=== PATIENT | female | born 1965 | race Caucasian/White ===

== ENCOUNTER 2018-10-16 13:58 | Emergency (ER) | payer OTHER, SELFPAY ==
[2018-10-16 13:59] VITALS: BP 119/74; PULSE 85; RESP 16; TEMP 36.2; O2SAT 99; BMI 33.8
--- NOTE | 2018-10-16 14:33 | CT_ITS ---
STUDY: CT ABDOMEN AND PELVIS WITH CONTRAST REASON FOR EXAM: Female, 53 years old. Pain RADIATION DOSAGE (If Supplied By Facility): DLP = ( 1907.17 ) mGycm TECHNIQUE: Transaxial images were obtained from the dome of the diaphragm to the symphysis pubis with oral contrast. 100CC ml of Isovue 300 contrast was administered. Sagittal and coronal images were reconstructed. Individualized dose optimization techniques were used for this CT. COMPARISON: None. FINDINGS: The visualized lung bases are clear. The visualized portions of the heart and pericardium are within normal limits. There are no calcified gallstones present. The liver is within normal limits. There are no suspicious hepatic lesions. The spleen is normal in size. The pancreas is within normal limits. The adrenal glands are within normal limits. There are no obstructing renal stones. There is no hydronephrosis. There are no focal renal lesions. There is a right adnexal 7.1 x 5.5 x 5.1 cm cyst. Normal visualized stomach. There is no bowel obstruction or inflammation. The appendix is not normal. Visualized, but there are no findings to suggest acute appendicitis. The aorta is normal in caliber. There is no abdominal or pelvic free air, free fluid, fluid collection or lymphadenopathy. There are no destructive osseous lesions. CT/Abdomen/Pelvis WITH Contrast IMPRESSION: Right adnexal 7.1 x 5.5 x 5.1 cm cyst. Consider enlarged ovarian or paraovarian cyst. Pelvic ultrasound and gynecological consultation is recommended. Normal appendix. Electronically Signed: Saravanan Chapman, at 16:45 EDT Tel , Service support ,
[2018-10-16 14:58] LABS: Absolute Lymphocyte Count 1.63 X10^3/uL (0.83-4.51); Basophil# 0.02 X10^3/uL; Basophil% 0.3 % (0-1); Eosinophil# 0.17 X10^3/uL; Eosinophils% 2.8 % (0-5); Hemoglobin 14.3 g/dL (12.0-15.0); Lymphocyte # 1.63 X10^3/ul (4.0); Lymphocyte % 26.5 % (19-41); Mean Corp Hgb Conc 33.3 g/dL (32-36); Mean Corpuscular Hgb 29.4 pg (27.0-32.0); Mean Corpuscular Volume 88.3 fL (81-99); Mean Platelet Vol. 9.7 fl (6.2-12.0); Monocyte# 0.36 X10^3/uL; Monocyte% 5.9 % (0-10); NRBC Flagged by Analyzer 0 % (0-5); Neutrophil # 3.96 X10^3/uL (2.7-7.7); Neutrophil % 64.3 % (47-70); Platelet Count 271 K/mm3 (150-450); RBC Distribution Width CV 12.5 % (11.6-14.6); Red Blood Count 4.87 M/mm3 (4.2-5.4); White Blood Count 6.2 K/mm3 (4.4-11.0)
[2018-10-16 15:02] LABS: Bacteria 0 SEEN /hpf (None Seen); Mucous, Urine 0 SEEN /hpf (<or=2+); White Blood Cells 0 SEEN /hpf (0-5)
[2018-10-16 15:13] LABS: ALB/GLOB Ratio 0.9 RATIO (0.9-2.4); AST(SGOT) 23 U/L (15-37); Alanine Aminotransfer ALT/SGPT 35 U/L (13-56); Albumin, Serum 4.2 g/dL (3.2-5.0); Alkaline Phosphatase 86 U/L (45-117); Anion Gap 4 (5-15); BUN 16 mg/dL (7-18); BUN/Creat Ratio 18.7 RATIO (10-20); Calcium,Total 9.2 mg/dL (8.5-10.1); Chloride 105 mmol/L (98-107); Creatinine, Serum 0.85 mg/dL (0.55-1.02); EST Glomerular Filtration Rate 74 mL/min (>60); Est Glom Filt Rate - Afr Amer 89 mL/min (>60); Estimated Creatinine Clearance 60.54 ml/min; Globulin 4.5 g/dL (2.2-4.2); Glucose 88 mg/dL (74-106); Potassium 3.9 mmol/L (3.5-5.1); Protein, Total 8.7 g/dL (6.4-8.2); Sodium Level 138 mmol/L (136-145)
[2018-10-16 15:14] LABS: Color, Urine Yellow (Yellow); Glucose, Dipstick Normal (Normal); Ketone-Dipstick Negative (Negative); Leukocyte Esterase-Dipstick Negative /ul (Negative); Nitrite-Dipstick Negative (Negative); Occult Blood-Urine 10 /ul (Negative); Protein-Dipstick Negative (Negative); Urine Bilirubin Dipstick Negative (Negative); Urine Clarity Clear (Clear); Urine Urobilinogen Normal (Normal)
[2018-10-16 15:21] LABS: Red Blood Cells-Urine 0-5 SEEN /hpf (0-5); Squamous Epithelial Cells - UA 0-5 SEEN /hpf (5-10)
[2018-10-16 16:12] VITALS: BP 129/101; PULSE 83; RESP 12; O2SAT 99
[2018-10-16 16:30] VITALS: BP 129/101; PULSE 83; RESP 12; O2SAT 99
--- NOTE | 2018-10-16 16:37 | ED.DCSUM_ITS ---
- ER Visit Summary Date of Service: 10/16/18 Chief Complaint: Right lower quadrant abdominal pain History of Present Illness: The patient is a 53 F who presents with right lower quadrant abdominal pain that began yesterday. Patient states the pain is been constant. Patient describes the pain as aching. Patient states the pain is worse with sitting. Patient denies any nausea or vomiting. Patient denies any diarrhea. Patient denies any melena or hematochezia. Patient denies any urinary complaints. Patient states the pain began in the right lower quadrant and has stayed in the same spot. Patient denies any radiation of the pain. Patient states she has a history of a uterine fibroid. Patient saw her retail marketing executive who referred her to the emergency department for further evaluation. Physical Examination: Vital signs are stable. Patient is afebrile. Patient is in no acute distress. Oral mucosa is pink and moist. Neck is supple. Trachea is midline. There is no JVD noted. Heart was regular rate and rhythm. Lungs are clear and equal bilaterally. Abdomen is soft. Bowel sounds are normal. There is some mild tenderness over the right lower quadrant. There is no rebound or guarding noted. Cranial nerves II through XII are intact. There are no focal motor or sensory deficits noted. Test Results: CBC, comprehensive metabolic profile, and urinalysis were obtained and were all normal. CT scan of the abdomen pelvis was obtained. There is a right adnexal cyst. The appendix is normal. Emergency Department Course and Treatment: Patient was advised of her results. Patient was instructed to follow-up with her retail marketing executive in 5 to 7 days. Patient was instructed to take Tylenol or ibuprofen as needed for pain. Patient understood and was agreeable with the plan. All questions were answered. Disposition: Discharge home Impression: Right ovarian cyst This note was generated with Aucteliaation software. It may contain incorrect words, spelling, and punctuation that were not noted in review of the chart prior to signing ED Disposition - Plan for ED Patient: Disposition: Home or Assisted Living Diagnosis: Right ovarian cyst Instructions: Ovarian Cyst Referrals: Care Physician,No Primary [Primary Care Provider] - Rosita Jamison MD [STAFF PHYSICIAN] - 5-7 Days
== END 2018-10-16 17:25 | disposition home or self-care (01) ==
PROVIDERS: Emergency Provider Emergency Medicine
DX: N83.201 Unspecified ovarian cyst, right side (principal)
CPT/HCPCS: 74177; 80053; 81001; 85025; 99283; Q9967; A4216

== ENCOUNTER → 2019-02-16 10:07 | Outpatient (CLI) | payer OTHER, SELFPAY ==
--- NOTE | 2019-02-16 10:19 | EKG12_ITS ---
Test Reason : PRE OP Blood Pressure : / mmHG Vent. Rate : 083 BPM Atrial Rate : 083 BPM P-R Int : 154 ms QRS Dur : 084 ms QT Int : 378 ms P-R-T Axes : 021 049 017 degrees QTc Int : 444 ms Normal sinus rhythm Normal ECG Confirmed by JULITA TEAGUE, MELCHOR ([id number]), order editor MARIO ALBERTO HUBER ([id number]) on 02/16/2019 1:50:44 PM Referred By: Flip Chirinos Confirmed By:MELCHOR CANCINO MD
[2019-02-16 11:18] LABS: Hematocrit 39.3 % (37-47); Hemoglobin 12.6 g/dL (12.0-15.0); Mean Corp Hgb Conc 32.1 g/dL (32-36); Mean Corpuscular Hgb 27.9 pg (27.0-32.0); Mean Corpuscular Volume 87.1 fL (81-99); Mean Platelet Vol. 9.8 fl (6.2-12.0); Platelet Count 291 K/mm3 (150-450); RBC Distribution Width CV 12.6 % (11.6-14.6); RBC Distribution Width SD 39.8 fl (35.1-43.9); Red Blood Count 4.51 M/mm3 (4.2-5.4); White Blood Count 5.7 K/mm3 (4.4-11.0)
[2019-02-16 11:50] LABS: Anion Gap 5 (5-15); BUN 19 mg/dL (7-18); BUN/Creat Ratio 26.7 RATIO (10-20); Calcium,Total 8.9 mg/dL (8.5-10.1); Chloride 106 mmol/L (98-107); Creatinine, Serum 0.71 mg/dL (0.55-1.02); EST Glomerular Filtration Rate 91 mL/min (>60); Est Glom Filt Rate - Afr Amer 110 mL/min (>60); Glucose 77 mg/dL (74-106); Potassium 3.8 mmol/L (3.5-5.1); Sodium Level 140 mmol/L (136-145)
== END ==
PROVIDERS: Family Provider Internal Medicine; PCP Internal Medicine; Referring Provider Physician Assistant; Visit Provider Physician Assistant
DX: Z01.818 Encounter for other preprocedural examination (principal); Z01.810 Encounter for preprocedural cardiovascular examination
CPT/HCPCS: 36415; 80048; 85027; 93005

== ENCOUNTER 2019-04-06 03:53 | Observation (INO) | payer OTHER, SELFPAY ==
[2019-04-06] VITALS (18 sets, daily range): BP systolic 103–151; BP diastolic 60–94; PULSE 58–114; RESP 16–18; TEMP 36.1–36.9; O2SAT 94–98; BMI 37.3; BMI 37.5
--- NOTE | 2019-04-06 04:21 | CT_ITS ---
We are attempting to reach an attending provider to discuss findings. An addendum with communication details will be sent when the communication is complete. STUDY: CT ABDOMEN AND PELVIS WITH CONTRAST REASON FOR EXAM: Female, 53 years old. RIGHT LOWER PELVIC PAIN WITH SHARP, STABBING, CRAMPING, INCREASED LAST NIGHT WITH NAUSEA, HX FIBROID ON LAST CT RADIATION DOSAGE (If Supplied By Facility): CTDIvol = ( 16.67 ) mGy, DLP = ( 1263.36 ) mGycm TECHNIQUE: Transaxial images were obtained from the dome of the diaphragm to the symphysis pubis without oral contrast. Oral and amp; IV Gastrografin and amp; 100mL Isovue-300 was administered. Sagittal and coronal images were reconstructed. Individualized dose optimization techniques were used for this CT. COMPARISON: None. FINDINGS: The visualized lung bases are unremarkable. The visualized portions of the heart are within normal limits. Normal liver. Normal gallbladder and extrahepatic biliary system. Normal spleen. Normal pancreas. Normal bilateral adrenal glands. Normal right kidney. Normal left kidney. Normal visualized stomach. Normal small intestine. Normal colon. There is a tubular, thick-walled appendix (>7mm), consistent with acute appendicitis. Normal abdominal aorta. Normal inferior vena cava. Normal retroperitoneum. Normal urinary bladder. There is a cystic lesion in the right ovary measures 6 cm. Normal abdominal wall. Normal osseous structures. CT/Abdomen/Pelvis WITH Contrast IMPRESSION: Acute appendicitis. There is a cystic lesion in the right ovary measures 6 cm. Electronically Signed: Aisha German, at 6:19 EST Tel , Service support ,
--- NOTE | 2019-04-06 04:22 | ED.VISSUMM ---
- ER Visit Summary Date of Service: 04/06/19 Chief Complaint: Right lower abdominal pain History of Present Illness: The patient is a 53 F who presents with right lower abdominal and pelvic pain that began last night and has gotten progressively worse. Patient describes the pain is sharp, cramping, and stabbing. Patient states nothing makes it better or worse. Patient states she has a history of a fibroid on her uterus. Patient denies any abnormal vaginal bleeding or discharge. Patient does admit to some dysuria. Patient admits to some nausea and vomiting today. Patient denies any fevers or chills. Patient denies any diarrhea, melena, or hematochezia. Patient denies any hematemesis or coffee-ground emesis. Physical Examination: Vital signs are stable except for a heart rate of 114. Patient is afebrile. Patient is in no acute distress. Oral mucosa is pink and moist. Neck is supple. Trachea is midline. There is no JVD. Heart was regular rate and rhythm. Lungs are clear and equal bilaterally. Abdomen is soft. Bowel sounds are normal. There is some tenderness in the right lower quadrant. There is no rebound or guarding noted. Cranial nerves II through XII are intact. There are no focal motor or sensory deficits noted. Test Results: CBC and comprehensive metabolic profile were obtained and were essentially within normal limits. Urinalysis does not show any evidence of urinary tract infection. CT scan of the abdomen and pelvis was obtained. There is acute appendicitis. There is also a 6 cm right ovarian cyst. Emergency Department Course and Treatment: Patient was given IV fluids, morphine, and Zofran. Case was discussed with Dr. Kunz from surgery. He will admit the patient to her service. She recommended starting the patient on antibiotics. Patient was given a dose of Unasyn. Patient was also given a repeat dose of morphine. Patient understands and is agreeable with the plan. All questions were answered. Disposition: Admit to hospital Impression: Acute appendicitis This note was generated with Yapta dictation software. It may contain incorrect words, spelling, and punctuation that were not noted in review of the chart prior to signing ED Disposition - Plan for ED Patient: Disposition: Acute Care Hospital [facility] Diagnosis: Acute appendicitis Referrals: Tracy Mendez DO [Primary Care Provider] -
[2019-04-06 04:28] LABS: Absolute Lymphocyte Count 1.45 X10^3/uL (0.83-4.51); Absolute Neutrophil Count 7.7 X10^3/uL (2.0-7.7); Basophil# 0.01 X10^3/uL; Basophil% 0.1 % (0-1); Eosinophil# 0.02 X10^3/uL; Eosinophils% 0.2 % (0-5); Hemoglobin 12.9 g/dL (12.0-15.0); Lymphocyte # 1.45 X10^3/ul (4.0); Lymphocyte % 15.1 % (19-41); Mean Corp Hgb Conc 32.3 g/dL (32-36); Mean Corpuscular Hgb 27.7 pg (27.0-32.0); Mean Platelet Vol. 9.5 fl (6.2-12.0); Monocyte# 0.43 X10^3/uL; Monocyte% 4.5 % (0-10); NRBC Flagged by Analyzer 0 % (0-5); Neutrophil # 7.68 X10^3/uL (2.7-7.7); Neutrophil % 79.9 % (47-70); Platelet Count 263 K/mm3 (150-450); RBC Distribution Width CV 13.1 % (11.6-14.6); RBC Distribution Width SD 40.7 fl (35.1-43.9); Red Blood Count 4.65 M/mm3 (4.2-5.4); White Blood Count 9.6 K/mm3 (4.4-11.0)
[2019-04-06] MEDS: 0.9% Normal Saline 1,000 ML 1000 ML IV (04:36)
[2019-04-06] MEDS: Morphine 4 MG/ML Syringe IV ×4 (04:37→16:16)
[2019-04-06] MEDS: Ondansetron 4 MG/2 ML Vial IV ×2 (04:37→07:08)
[2019-04-06 04:41] LABS: ALB/GLOB Ratio 0.8 RATIO (0.9-2.4); AST(SGOT) 26 U/L (15-37); Alanine Aminotransfer ALT/SGPT 45 U/L (13-56); Albumin, Serum 3.7 g/dL (3.2-5.0); Alkaline Phosphatase 75 U/L (45-117); Anion Gap 5 (5-15); BUN 19 mg/dL (7-18); BUN/Creat Ratio 25.1 RATIO (10-20); Calcium,Total 9.4 mg/dL (8.5-10.1); Chloride 102 mmol/L (98-107); Creatinine, Serum 0.76 mg/dL (0.55-1.02); EST Glomerular Filtration Rate 85 mL/min (>60); Est Glom Filt Rate - Afr Amer 103 mL/min (>60); Estimated Creatinine Clearance 67.71 ml/min; Globulin 4.4 g/dL (2.2-4.2); Glucose 122 mg/dL (74-106); Lipase 115 U/L (73-393); Potassium 4.2 mmol/L (3.5-5.1); Protein, Total 8.1 g/dL (6.4-8.2); Sodium Level 136 mmol/L (136-145)
[2019-04-06 05:25] LABS: Bacteria 0 SEEN /hpf (None Seen); Mucous, Urine 0 SEEN /hpf (<or=2+)
[2019-04-06 05:34] LABS: Color, Urine Yellow (Yellow); Glucose, Dipstick Normal (Normal); Ketone-Dipstick Negative (Negative); Leukocyte Esterase-Dipstick 500 /ul (Negative); Nitrite-Dipstick Negative (Negative); Occult Blood-Urine 25 /ul (Negative); Protein-Dipstick Negative (Negative); Specific Gravity, Urine 1.015 (1.002-1.030); Urine Bilirubin Dipstick Negative (Negative); Urine Clarity Sl. Cloudy (Clear); Urine Urobilinogen Normal (Normal)
[2019-04-06 05:59] LABS: Red Blood Cells-Urine 0-5 SEEN /hpf (0-5); Squamous Epithelial Cells - UA 5-10 SEEN /hpf (5-10); White Blood Cells 5-10 SEEN /hpf (0-5)
--- NOTE | 2019-04-06 06:27 | ED.RN ---
dr. stout paged left message at this time
--- NOTE | 2019-04-06 07:35 | HP.PCM_ITS ---
History and Physical Date of Admission: 04/06/19 Chief Complaint: abdominal pain History of Present Illness: 53 yo otherwise healthy WF presents with right lower quadrant abdominal pain. She was concerned that it was her fibroids. She states that pain has been presents since yesterday afternoon. It worsened and accompanied by nausea and multiple episode of emesis. She presented to [facility] ED. CT scan - There is a tubular, thick-walled appendix (>7mm), consistent with acute appendicitis. Past Medical History: denies major medical illnesses Past Surgical History: right knee surgery colonoscopy Medications: denies taking chronic medications, took aspirin last week Allergies: Has no known drug allergies Social history: TOB use denies Review of Systems: General - denies fevers Cardiovascular denies chest pain, denies history of heart attack Pulmonary denies shortness of breath, denies coughing up blood, Gastrointestinal as per HPI Neurological denies seizures Genitourinary denies burning with urination, denies blood in urine Hematological denies spontaneous/prolonged bleeding Skin denies open non healing wounds Musculoskeletal denies arthritis Endocrine denies diabetes, denies thyroid problems Psychological denies hallucinations Physical examination: Vital signs Temp 97.7F BP 137/91 RR16 HR 91 General WD/WN WF in no apparent distress, alert and oriented, not septic appearing HEENT Normocephalic. EOM intact with sclera clear and no icterus noted. Wearing glasses Neck is supple with no jugular venous distention noted. Trachea is midline. Lungs normal breath sounds in all lung benavides. No rales/rhonchi/wheezing noted. No labored breathing noted, such as retractions. No cough heard. Heart normal heart sounds, regular rate Abdomen soft but tender in right lower quadrant with rebound, hypoactive bowel sounds Extremities no calf tenderness noted. No pitting edema noted. Genitourinary/Rectal deferred Skin normal skin integrity. Neurological non focal. Psychological normal affect, patient is calm and appropriate IMPRESSION: appendicitis by CT scan right lower quadrant abdominal pain DISCUSSION/PLAN: admit to [facility] awaiting time to OR for laparoscopic appendectomy I have discussed the above with the patient and her who is present with her I have offered the patient the procedure of laparoscopic appendectomy. I have explained the procedure to the patient. I have counseled the patient as to the risks of the procedure, including but not limited to: infection, bleeding, injury to any blood vessels/nerves, scar tissue, injury to any intrabdominal organs, injury to kidney/ureters, injury to bowel/bladder, intraabdominal abscess/bleeding, hernias at incisional sites, wound infections, possible open procedure, complications of anesthesia, postoperative pneumonia/cardiac problems/blood clots etc. the patient understands. She wishes to proceed. I have answered all questions to the patient?s satisfaction and the patient has no further questions. There are presently two other add-on cases awaiting OR time. I have offered patient to transfer to another hospital if she is concerned about waiting for surgery, she declines this.
[2019-04-06] MEDS: Lactated Ringers 1,000 ML 125 ML IV ×3 (08:41→23:33)
--- NOTE | 2019-04-06 11:35 | APP_PTH ---
PATIENT: ESTRELLA MCCORD LOC: PCU U#:[id number] AGE/SX: 53/F ROOM: [facility] RE04/06/[address]: Dr. Melania Kunz MD : [id number] BED: 1 DIS: 04/07/2019 SPEC #: [id number] RECD: 04/06/19 15:00 STATUS: LEILANI REQ #: [id number] DONNELL: 04/06/19 11:[address]: Melania Kunz DEPT: SURGICAL PATHOLOGY RECD BY: [employer] ENTERED: 04/07/19 10:01 SP TYPE: APPENDIX OTHR DR: Dr. Tracy Mendez DO Tissues: Appendix, NOS Procedures: Surgery Specimen Level III HEADER OPERATION: Laparoscopic appendectomy PRE-OP DIAGNOSIS: Appendicitis TISSUE SUBMITTED: Appendix MICROSCOPIC DIAGNOSIS Appendix, appendectomy: Acute necrotizing appendicitis. Acute serositis. AM:wayne 04/08/19 MICROSCOPIC DESCRIPTION Slides are reviewed. GROSS DESCRIPTION Received is one container labeled with the patient's name and designated appendix. The specimen consists of an appendix measuring 5.5 cm in length and up to 1 cm in diameter. The attached periappendiceal adipose tissue measures up to 1 cm in width. The serosa is congested. No obvious perforation is identified. The lumen does not contain any fecalith. Washing Machine Repairer sections are submitted in one cassette. / SJ:rg 04/07/19 TC:2 CPT: 69676
--- NOTE | 2019-04-06 12:08 | DCINST_ITS ---
Discharge Diet: No Restrictions - drink plenty of water avoid carbonated beverages for a few days Discharge Activity: Return to Normal Activity, May not drive while taking narcotic pain medications. Lifting Restrictions: no lifting/pushing/pulling greater than 10 pounds for 2 weeks Call your doctor if your incision/area has: Continuous Slow Oozing, Foul Smelling Discharge Call your doctor if you observe: Fever of 101 or Higher Additional Dressing/Incision Instructions:: Leave dressings in place. May get wet in the shower - do not scrub in the area. Do not soak - no tub baths/swimming Medications to take at Discharge NK 10/16/18 Allergies/Adverse Reactions: Allergies No Known Allergies Allergy (Verified 04/06/19 03:54) Primary Care Physician: Tracy Mendez DO [Primary Care Provider] - Test Results: Test results from this visit will be discussed in further detail at your follow- up appointment, if applicable. Please Follow Up With: Melania Kunz MD - call When: to be seen in 10-14 days, please call for date and time, thank you
[2019-04-06] MEDS: Bupiv/Epi 0.25% 30 ML Vial (12:53)
--- NOTE | 2019-04-06 13:04 | OP.PCM_ITS ---
Report of Operation Date of Procedure: 04/06/19 Pre-Operative Diagnosis: acute appendicitis Post-Operative Diagnosis: same Surgery/Procedure Performed:: laparoscopic appendectomy Description of Surgical Findings:: acute appendicitis, not perforated, large right ovarian cyst mold burner: luz maria Cage Type of Anesthesia:: General Anesthesiologist: Erica Marshall Specimen's removed: appendix Estimated Blood Loss (mL): < 10 ml Fluids Replaced: 1000 ml RL Description of Procedure: After informed consent was obtained, the patient was brought into the Operating Room. Appropriate time out protocol was followed. She was then placed in the supine position on the operating table. The patient was then placed under general anesthesia. The patient?s abdomen was then prepped with a sterile surgical skin preparation and sterile surgical drapes were placed. The in fraumbilical skin fold was grasped with penetrating clamps and the skin and subcutaneous tissues were infiltrated with 0.25% marcaine with epinephrine. There was noted to be a small umbilical fascial defect with incarcerated preperitoneal fat. This excess fat was excised and a 5 mm trocar was placed into the fascial defect with direct visualization. A CO2 pneumoperitoneum was then created. Once this was achieved, a 5 mm laparoscope was then inserted into the trocar. Careful examination of the intraabdominal contents was then done. There was no evidence of injury to any internal organs from placement of the trocar. Under direct visualization, a 12mm suprapubic trocar and a 5mm left lower quadrant trocar was then placed into the intraabdominal cavity. The skin and subcutaneous tissues at these sites were first infiltrated with 0.25% marcaine with epinephrine. Attention was then directed to the right lower quadrant. The appendix was visualized. It was edematous/erythematous with slight fibrinous exudate consistent with acute appendicitis. It was not perforated. The mesentery of the appendix was taken down by cauterizing the tissue from the free edge to the base of the appendix with the Harmonic scalpel. Once the base of the appendix was freed of surrounding tissues, then the linear gastrointestinal stapling device was brought into the abdominal cavity via the 12mm port and placed across the base of the appendix. The stapling device was fired, thus stapling across the base of the appendix and transecting it simultaneously. Slight oozing at the staple line was controlled with surgicel. The appendix was then placed in an Endobag and this was brought out through the suprapubic trocar. The appendix was then forwarded to Pathology for analysis. The appendiceal stump was carefully examined. There was no evidence of any active bleeding or fecal leakage. The surrounding tissues were also examined and there was no evidence of any active bleeding or fecal/bile leakage. The intraabdominal cavity was examined and there was no evidence of further inflammation or tissue abnormality except for large right ovarian cyst for which pictures were taken. There was no evidence of any peritoneal fluid. The CO2 pneumoperitoneum was released and all trocars were removed intact. The suprapubic fascia was reapproximated with a figure-of-8 vicryl suture. The periumbilical fascia was reapproximated with figure of 8 vicryl suture. All skin incisions were reapproximated with monocryl suture. Cavilon and steristrips were applied to reinforce skin closure and proper sterile dressings were placed. The patient was then extubated and brought to the Recovery Room in stable condition. - Complications none noted - Admit VTE Documentation VTE Present on Admission: Yes VTE Mechan Device Prophylaxis: SCD's
--- NOTE | 2019-04-06 20:27 | NURSING ---
PT STATES SHE FEELS UNABLE TO RETURN HOME TONIGHT D/T PAIN AND DROWSINESS.
[2019-04-07] MEDS: Morphine 4 MG/ML Syringe IV (02:59)
[2019-04-07 03:15] VITALS: BP 120/71; PULSE 86; RESP 18; TEMP 36.7; O2SAT 92
[2019-04-07 08:30] VITALS: BP 120/71; PULSE 87; RESP 18; TEMP 36.6; O2SAT 96
[2019-04-07] MEDS: traMADol 50 MG Tablet PO (08:30)
== END 2019-04-07 11:22 | disposition home or self-care (01) ==
LOC: ED 07:01 → PCU 07:18
PROVIDERS: Admitting Provider Surgery; Emergency Provider Emergency Medicine; PCP Internal Medicine; Visit Provider Surgery
PROC: 0DTJ4ZZ Resection of Appendix, Percutaneous Endoscopic Approach (ICD-10-PCS; CPT 44970; principal; 2019-04-06 11:15)
DX: K35.33 Acute appendicitis with perforation, localized peritonitis, and gangrene, with abscess (principal); N83.201 Unspecified ovarian cyst, right side
CPT/HCPCS: 00840; 44970; 74177; 80053; 81001; 83690; 85025; 88304; 96361; 96365; 96366; 96375; 96376; 97802; 99218; 99284; J7030; J7120; Q9967; A4216; G0378; J0295; J2405

== ENCOUNTER → 2019-04-10 09:22 | Outpatient (CLI) | payer OTHER, SELFPAY ==
[2019-04-06 08:47] VITALS: BMI 37.5
--- NOTE | 2019-04-10 09:28 | RAD_ITS ---
STUDY: X-RAY CHEST REASON FOR EXAM: Female, 53 years old. COUGH, 5 DAYS POST APPENDECTOMY TECHNIQUE: PA and lateral views of the chest. COMPARISON: None. FINDINGS: The lungs are clear and expanded. There is no demonstrated pleural abnormality. Normal size heart. Normal mediastinum and cary. Normal visualized pulmonary arteries. Normal visualized aortic arch and descending thoracic aorta. There are mild degenerative changes of the visualized thoracic spine. Levoscoliosis. Normal visualized ribs, clavicles, and shoulders. There is no demonstrated abnormality of the visualized soft tissue structures of the upper abdomen. RAD/Chest PA and Lateral IMPRESSION: No acute abnormality is seen. Electronically Signed: Rudi Reddy, at 10:14 EST , Service support ,
== END ==
PROVIDERS: PCP Internal Medicine; Referring Provider Internal Medicine; Visit Provider Internal Medicine
DX: R05 Cough (principal)
CPT/HCPCS: 71046

== ENCOUNTER → 2019-10-26 14:09 | Outpatient (CLI) | payer OTHER, SELFPAY ==
[2019-04-06 08:47] VITALS: BMI 37.5
--- NOTE | 2019-10-26 14:11 | CT_ITS ---
STUDY: CT ABDOMEN AND PELVIS WITHOUT CONTRAST REASON FOR EXAM: Female, 54 years old. PT STATED MICRO HEMATURIA, HX APPY RADIATION DOSAGE (If Supplied By Facility): CTDIvol = ( 15.57 ) mGy, DLP = ( 840.28 ) mGycm TECHNIQUE: Transaxial images were obtained from the dome of the diaphragm to the symphysis pubis without oral contrast, and without intravenous contrast. Sagittal and coronal images were reconstructed. Individualized dose optimization techniques were used for this CT. COMPARISON: Comparison is made with prior examination dated 04/06/2019. FINDINGS: The visualized lung bases are unremarkable. The visualized portions of the heart are within normal limits. Normal liver. Normal gallbladder and extrahepatic biliary system. Normal spleen. Normal pancreas. Normal bilateral adrenal glands. Normal right kidney. Normal left kidney. There is a small hiatal hernia. Normal small intestine. Normal colon. The patient is status post appendectomy. There is scattered atherosclerotic calcification of the abdominal aorta, without a demonstrated aneurysm. Normal inferior vena cava. Normal retroperitoneum. Normal urinary bladder. There is a small umbilical hernia containing fat. Minimal dextroscoliosis. CT/Abdomen/Pelvis without Cont IMPRESSION: Status post appendectomy. Electronically Signed: Rudi Reddy, at 14:33 EDT , Service support ,
== END ==
PROVIDERS: PCP Internal Medicine; Referring Provider Internal Medicine; Visit Provider Internal Medicine
DX: R31.29 Other microscopic hematuria (principal)
CPT/HCPCS: 74176

== ENCOUNTER → 2020-07-05 17:56 | Outpatient (CLI) | payer OTHER, SELFPAY ==
[2019-04-06 08:47] VITALS: BMI 37.5
--- NOTE | 2020-07-05 18:04 | US_ITS ---
STUDY: ULTRASOUND OF THE FEMALE PELVIS - COMPLETE REASON FOR EXAM: Female, 54 years old. HX FIBROID LMP: The patient is postmenopausal. TECHNIQUE: Transabdominal and Transvaginal TECHNICAL QUALITY: Adequate. COMPARISON: None. FINDINGS: The uterus is retroverted and is in a midline position. The uterus measures 8.2 cm x 7.1 cm x 4.3 cm. Normal uterine cervix. The endometrium measures 6 mm in thickness, and is hyperechoic. There is no demonstrated endometrial mass. Multiple fibroids are seen. The largest measures 5.5 cm x 5.8 cm x 5 cm. This is in the right side of the body of the uterus. I.U.D. - The patient does not have an I.U.D. The right ovary is visualized. The right ovary measures 2.6 cm x 2.3 cm x 1.7 cm. There is no right ovarian cyst or ovarian mass. There is no visualized right adnexal mass or complex lesion. There is normal arterial and normal venous vascularity. There is no fluid in the cul-de-sac. The pre void volume of the bladder was 140.5 ml. Polycystic ovary disease: No. US/Pelvic (Non ) IMPRESSION: Enlarged fibroid uterus. Electronically Signed: Rudi Reddy MD at 14:57 EDT , Service support ,
--- NOTE | 2020-07-05 18:17 | US_ITS ---
STUDY: ULTRASOUND OF THE FEMALE PELVIS - COMPLETE REASON FOR EXAM: Female, 54 years old. HX FIBROID LMP: The patient is postmenopausal. TECHNIQUE: Transabdominal and Transvaginal TECHNICAL QUALITY: Adequate. COMPARISON: None. FINDINGS: The uterus is retroverted and is in a midline position. The uterus measures 8.2 cm x 7.1 cm x 4.3 cm. Normal uterine cervix. The endometrium measures 6 mm in thickness, and is hyperechoic. There is no demonstrated endometrial mass. Multiple fibroids are seen. The largest measures 5.5 cm x 5.8 cm x 5 cm. This is in the right side of the body of the uterus. I.U.D. - The patient does not have an I.U.D. The right ovary is visualized. The right ovary measures 2.6 cm x 2.3 cm x 1.7 cm. There is no right ovarian cyst or ovarian mass. There is no visualized right adnexal mass or complex lesion. There is normal arterial and normal venous vascularity. There is no fluid in the cul-de-sac. The pre void volume of the bladder was 140.5 ml. Polycystic ovary disease: No. US/Transvaginal Non- IMPRESSION: Enlarged fibroid uterus. Electronically Signed: Rudi Reddy MD at 14:57 EDT , Service support ,
== END ==
PROVIDERS: PCP Internal Medicine; Referring Provider Internal Medicine; Visit Provider Internal Medicine
DX: R10.2 Pelvic and perineal pain (principal)
CPT/HCPCS: 76830; 76856

== ENCOUNTER 2021-03-08 08:17 | Outpatient (CLI) | payer OTHER, SELFPAY ==
--- NOTE | 2021-03-08 08:25 | US_ITS ---
STUDY: ABDOMINAL ULTRASOUND - RIGHT UPPER QUADRANT REASON FOR VISIT: Female, 55 years old ruq pain TECHNIQUE: Ultrasound evaluation of the right upper quadrant was performed with real-time and static britton-scale imaging. TECHNICAL QUALITY: Adequate. COMPARISON: None. FINDINGS: Liver: The liver measures 15.7 cm. There is increased echogenicity consistent with fatty infiltration. The bile ducts are within normal limits. There is hepatic color flow. The direction of portal flow is hepatopetal. There is no demonstrated mass lesion. Gallbladder: Normal distended gallbladder. The gallbladder wall measures 2.2 mm. There is a negative sonographic Drew''s sign. There is no pericholecystic fluid. There are no gallstones. Common Bile Duct (C.B.D.): The common bile duct measures 3.7 mm. Pancreas: Normal size of the head, body and tail of the pancreas. There is normal echogenicity of the pancreas. There is no demonstrated pancreatic mass or cyst. Right Kidney: Normal size of the right kidney. The right kidney measures 9.2 cm x 5.4 cm x 4.6 cm. Normal renal cortex. The right cortex measures 1.4 cm. There is no demonstrated renal mass or cyst. Fullness of the right renal pelvis. US/Gallbladder IMPRESSION: Fatty infiltration of the liver. Fullness of the right renal pelvis. Electronically Signed: Rudi Reddy MD at 13:57 EST , Service support ,
== END 2021-03-08 23:59 | disposition short-term general hospital (02) ==
PROVIDERS: PCP Internal Medicine; Referring Provider Internal Medicine; Visit Provider Internal Medicine
DX: R10.11 Right upper quadrant pain (principal)
CPT/HCPCS: 76705

== ENCOUNTER 2022-01-17 09:02 | Outpatient (CLI) | payer OTHER, SELFPAY ==
--- NOTE | 2022-01-17 09:10 | BD_ITS ---
STUDY: DUAL ENERGY X-RAY ABSORPTIOMETRY / DXA REASON FOR EXAM: Female, 56 years old. Z780 TECHNIQUE: Bone Mineral Density (BMD) measurements of lumbar spine and bilateral hips were obtained. COMPARISON: None. FINDINGS: Lumbar Spine (L1-L4): g/cm2 (0.978) / T-score (-0.5) / Z-score (0.6) Findings are suggestive of normal bone density with a low fracture risk. Left Femur Total: g/cm2 (1.003) / T-score (0.5) / Z-score (1.2) Left Femoral Neck: g/cm2 (0.907) / T-score (0.5) / Z-score (1.6) Right Femur Total: g/cm2 (0.968) / T-score (0.2) / Z-score (1.0) Right Femoral Neck: g/cm2 (0.836) / T-score (-0.1) / Z-score (1.0) BD/Dexa Bone Density Study IMPRESSION: The patient is considered normal as outlined below according to World Cooper Organization (WHO) criteria with a low fracture risk. Reference Information: The T-score is the number of standard deviations above or below the standard which is normal for young adults at their peak bone mineral density. The World Health Organization (WHO) interprets the T-scores as follows: Above -1 Normal bone density Between -1 and -2.5 Osteopenia Equal to / or below -2.5 Osteoporosis As a practical clinical guideline, osteopenia may be graded as follows: Mild -1 through -1.5 Moderate -1.6 through -2.0 Severe -2.1 through -2.4 The Z-score is the number of standard deviations above or below age-matched controls. A Z-score of less than -1.5 would be considered abnormal. References: 1. NIH Osteoporosis and Related Bone Diseases www osteo.org 2. International Society for Clinical Densitometry www iscd.org 3. National Osteoporosis Foundation www nof.org Electronically Signed: Rudi Reddy MD at 14:59 EST ,
== END 2022-01-17 23:59 | disposition home or self-care (01) ==
PROVIDERS: PCP Internal Medicine; Visit Provider Internal Medicine
DX: Z78.0 Asymptomatic menopausal state (principal)
CPT/HCPCS: 77080

== ENCOUNTER 2023-01-03 05:25 | Day surgery (SDC) | payer OTHER, SELFPAY ==
--- NOTE | 2022-12-07 17:49 | PCM.HP.BLA ---
History and Physical Date of Admission: 01/03/23 HPI: The patient is a 57 year old female presenting for pre-operative visit. She is scheduled for LAVH with bilateral salpingectomy, for persistent NY on cervix on 01/03/23. Procedure discussed along with risks, benefits and complications. Other alternatives discussed for management. Consent form signed? Yes. ? ? PAST MEDICAL HISTORY PAST MEDICAL HISTORY Diagnosis Date ? Acute appendicitis 04/06/2019 ? ASCUS with positive high risk HPV cervical 07/27/2019 ? Cervical high risk human papillomavirus (HPV) DNA test positive 2009,2017 ? Dysplasia of cervix, unspecified 1998 ? mild dysplasia ? Pap smear of cervix with ASCUS, cannot exclude HGSIL 2017 ? Papanicolaou smear of cervix with atypical squamous cells of undetermined significance (ASC-US) 2007 ? neg HPV ? Snoring ? ? ? PAST SURGICAL HISTORY PAST SURGICAL HISTORY Procedure Laterality Date ? COLONOSCOPY FLX DX W/COLLJ SPEC WHEN PFRMD ? 10/06/2018 ? Colonoscopy ? COLPOSCOPY CERVIX UPPER/ADJACENT VAGINA ? 1996;1998;2002;2005;2006;2009 ? Colposcopy ? KNEE SURGERY HX Right 02/2019 ? LAPAROSCOPIC APPENDECTOMY ? 04/06/2019 ? PAST SURGICAL HISTORY OF ? 05/31/1998 ? leep-mild dysplasia ? ? ? CURRENT MEDICATIONS Current Outpatient Medications Medication Sig Dispense Refill ? calcium carbonate/vitamin d3(CALCIUM 600 + D 600 MG-125 UNIT TAB) Take one(1) tablet twice daily. ? 0 ? omeprazole (PRILOSEC) 20 mg capsule TAKE 1 CAPSULE BY MOUTH EVERY MORNING 15 MINUTES before eating ? ? ? rosuvastatin (CRESTOR) 5 mg tablet Take 5 mg by mouth once daily. ? ? ? No current facility-administered medications for this visit. ? ? ALLERGIES: Patient has no known allergies. ? PERSONAL HISTORY: SOCIAL HISTORY Social History ? Tobacco Use ? Smoking status: Never ? Smokeless tobacco: Never Vaping Use ? Vaping Use: Never used Substance Use Topics ? Alcohol use: Not Currently ? Drug use: No ? FAMILY HISTORY: FAMILY HISTORY FAMILY HISTORY Problem Relation Age of Onset ? Hypertension Mother ? ? Heart Mother ? ? Heart attack ? Heart Father ? ? CHF ? Stroke Father ? ? Diabetes Maternal Grandfather ? ? Cancer Paternal Grandmother ? ? ovarian ? Diabetes Maternal Aunt ? ? Cancer Paternal Aunt ? ? ovarian ? Breast Cancer Paternal Aunt ? ? same one with ovarian ? ? REVIEW OF SYMPTOMS: GENERAL: denies fevers or chills ENDOCRINOLOGY: has not been on steroids Cardiology : denies palpitations or chest pain Respiratory: denies SOB or cough Hematology: denies history of prolonged bleeding or easy bruising or VTE Allergy: Denies history of personal or family history of allergy to anesthesia ? PHYSICAL EXAMINATION: ? VITALS: Blood pressure 124/82, weight 212 lb (96.2 kg), last menstrual period 05/15/2017. ? GENERAL: The patient is well nourished, well hydrated in no acute distress. , The patient is oriented to time, place, and person. NECK: Supple. No lynphadenopathy, normal thyroid, no thyromegaly. LUNGS: Clear to auscultation bilaterally. no wheezes, rhonchi or rales HEART: Regular rate and rhythm, Normal heart sounds, and No murmurs or gallops GENITALIA: Normal external genitalia, Urethral meatus normal, Bladder nontender, normal vagina and normal vaginal tone, normal uterus, size and consistency, normal adnexa without masses or tenderness, and perineum WNL, cervix flush and stenotic ? ? DATE OF EXAM: Nov ?2022 ?7:37AM ? [facility] ? 1060 ?- ?US FEMALE PELVIS TRANSVAG ?/ PROCEDURE REASON: Pelvic pain in female ?? ? * * * * Physician Interpretation * * * * ?EXAMINATION: ? TRANSVAGINAL AND LIMITED TRANSABDOMINAL FEMALE PELVIC ULTRASOUND CLINICAL HISTORY: ?Pelvic pain. ?Uterine fibroid TECHNIQUE: Sonography of the pelvis was performed by transvaginal and transabdominal (limited) techniques. ?Images were obtained and stored in a permanent archive. MQ: ?[id number] COMPARISON: 08/25/2018 RESULT: Uterus: -Size: 7.2 x 3.2 x 3.8 cm -Orientation: Retroverted -Endometrial echo complex: Evaluation of the endometrium was adequate. ? The endometrium is heterogeneous in appearance. The endometrial echo complex measured 0.8 cm. -Cervix: Nabothian cysts present, otherwise unremarkable. -Adenomyosis assessment: There are no sonographic findings of adenomyosis. -Fibroids: Right uterine fibroid, subserosal of 5.7 cm. ?Stable The right and left ovary are not seen with the transabdominal or endovaginal probe Free Fluid: No abnormal free fluid is present. No pathologic adnexal mass ? ? Unable to do EMB due to cervical stenosis 11/14/22 cervical biopsy NY 2 ? IMPRESSION: NY 2, flush cervix, thickened endometrium, cervical stenosis Patient has h/o lEEP and stenotic cervix. D/w her repeat cone or leep may make surveillance more difficult. D/w her short and longwall foreman risks of hysterectomy including that HPV may persist. ? PLAN: The risks/benefits/alternatives and personal involved for the planned LAVH with bilateral salpingectomy were reviewed with the patient. Her questions were answered to her satisfaction and she desires to proceed. Consent was signed. I reviewed with her postop instructions and expectations. ? ? I have reviewed and updated past medical and surgical history, medications and allergies Assessment & Plan Assessment/Plan (1) NY II (cervical intraepithelial neoplasia II): (2) Stenotic cervical os: (3) Endometrial thickening on ultrasound:
--- NOTE | 2022-12-26 07:11 | EKG12_ITS ---
Test Reason : PRE-OP Blood Pressure : / mmHG Vent. Rate : 079 BPM Atrial Rate : 079 BPM P-R Int : 162 ms QRS Dur : 082 ms QT Int : 396 ms P-R-T Axes : 042 058 039 degrees QTc Int : 454 ms Normal sinus rhythm with sinus arrhythmia Normal ECG Confirmed by GUERDA TEAGUE, FRAN ([id number]), school photograph editor CALVIN MCGOVERN ([id number]) on 01/07/2023 7:54:33 AM Referred By: Rosita Jamison Confirmed By:KATIE CROFT MD
[2022-12-26 07:58] LABS: Hematocrit 42.6 % (37-47); Hemoglobin 13.4 g/dL (12.0-15.0); Mean Corp Hgb Conc 31.5 g/dL (32-36); Mean Corpuscular Hgb 27.2 pg (27.0-32.0); Mean Corpuscular Volume 86.4 fL (81-99); Mean Platelet Vol. 9.5 fl (6.2-12.0); Platelet Count 312 K/mm3 (150-450); RBC Distribution Width CV 12.8 % (11.6-14.6); RBC Distribution Width SD 40.2 fl (35.1-43.9); Red Blood Count 4.93 M/mm3 (4.2-5.4); White Blood Count 5.7 K/mm3 (4.4-11.0)
[2022-12-26 08:18] LABS: Magnesium 2.5 mg/dL (1.6-2.6)
[2023-01-03] VITALS (9 sets, daily range): BP systolic 93–128; BP diastolic 55–84; PULSE 55–84; RESP 14–18; TEMP 35.8–36.6; O2SAT 93–100; BMI 38.2
[2023-01-03] MEDS: Lactated Ringers 1,000 ML 40 ML IV (06:09)
[2023-01-03] MEDS: Scopolamine 1mg/72hr Patch 1 PATCH TD (06:10)
[2023-01-03] MEDS: Magnesium 1 GM over 15 mins IV (06:10)
[2023-01-03] MEDS: Enoxaparin 40 MG/0.4 ML Syringe SC (06:13)
[2023-01-03] MEDS: Phenazopyridine 95 MG Tablet 190 MG PO (06:15)
[2023-01-03] MEDS: Celecoxib 200 MG Capsule 400 MG PO (06:15)
[2023-01-03] MEDS: Gabapentin 600 MG Tablet PO (06:16)
[2023-01-03] MEDS: dexAMETHasone 4 MG/ML Vial 8 MG IV (06:16)
[2023-01-03] MEDS: Acetaminophen 500 MG Tablet 1000 MG PO (06:16)
[2023-01-03 07:16] LABS: Bedside Glucose 77 mg/dL (74-106)
--- NOTE | 2023-01-03 07:30 | HYST_PTH ---
PATIENT: ESTRELLA MCCORD [place] [facility] [place][id number] AGE/SX: 57/F ROOM: RE01/03/[address]: Dr. Rosita Jamison MD : 1965 BED: DIS: 01/03/2023 SPEC #: [id number] RECD: 01/03/23 11:13 STATUS: LEILANI REYifan #: [id number] DONNELL: 01/03/23 07:[address]: Rosita Jamison DEPT: SURGICAL PATHOLOGY RECD BY: Maxine Smith ENTERED: 01/03/23 12:18 SP TYPE: HYSTERECT OTHR DR: Dr. Tracy Mendez, Tissues: Uterus, NOS Procedures: Surgery Specimen Level V HEADER OPERATION: ERAS, hysterectomy, LAVH, bilateral salpingectomy PRE-OP DIAGNOSIS: NY 2, stenosis cervical OS, endometrial thickening TISSUE SUBMITTED: Uterus, cervix, bilateral tubes MICROSCOPIC DIAGNOSIS Uterus, cervix, bilateral tubes, hysterectomy bilateral salpingectomy: Cervix - negative for dysplasia. - chronic inflammation. Endometrium - proliferative endometrium with focal cystic changes. Endometrial polyp - simple cystic endometrial hyperplasia without atypia. Myometrium - intramural and subserosal leiomyomas (2 and 5.5 cm in greatest dimension). Bilateral fallopian tubes - no pathologic diagnosis. SJ: 01/04/2023 COMMENT Detached piece of soft tissue consists of fimbrial end of the fallopian tube. MICROSCOPIC DESCRIPTION Slides are reviewed. GROSS DESCRIPTION Received in fixative is one container labeled with the patient's name and designated uterus. The specimen consists of a hysterectomy specimen consisting of a uterus with cervix and detached bilateral fallopian tubes. The uterus with cervix weighs 154 gm and measures 10 x 6 x 5 cm. The serosal surface is smooth. The ectocervical mucosa is congested. The external os is pinpoint in contour. The endocervical canal measures 2.5 cm in length and the endocervical mucosa is unremarkable. The triangular endometrial cavity measures 4 cm in length and 2 cm in width. The endometrium is bragg, and measures 0.1 cm in thickness. A sessile polyp is noted measuring 1 x 1 x 0.2 cm is noted. Myometrial wall underneath the polyp is not indurated. Sections of the uterine wall reveal two masses one intramural measuring 2 cm and second subserosal measuring 5.5 cm in greatest dimension. Sections of these masses reveal bragg whorled cut surfaces without areas of hemorrhage, necrosis or cystic degeneration. Myometrial wall measures up to 2.0 cm in thickness. Fallopian tubes are not identified as right or left. One fallopian tube is intact and measures 5 cm in length and 0.6 cm in diameter. The second fallopian tube is received in two pieces measuring 5 cm in length and 0.5 cm in diameter. A detached piece of bragg pink soft tissue is also noted measuring 1.5 x 1 x 0.5 cm. Fimbrial ends are noted in both fallopian tubes. Sections reveal unremarkable cut surfaces. C Developer sections are submitted in eighteen cassettes as follows: 1-8 cervix like cone (1&2 -12-3 o'clock, 3&4- 3-6 o'clock, 5&6 - 6-9 o'clock, 7&8 - 10-12 o'clock), 9&10 - Anterior uterine wall, 11&12 - Posterior uterine wall, 13- smaller mass and endometrial polyp (entirely submitted), 14&15- Larger nodular mass, 16- Intact Fallopian tube, 17- Second fallopian tube, 18- Detached piece of soft tissue. /SUZANNE:cc:nemo 01/03/23 TC:1 CPT: 52111
[2023-01-03] MEDS: Cefazolin 2 GM in 0.9% Normal Saline (100mL Bag) 100 ML IV (07:35)
--- NOTE | 2023-01-03 07:52 | PCM.DC ---
Discharge Instructions Diet Discharge Diet: Light diet - advance as tolerated Activity Discharge Activity: May Shower and May Take a Tub Bath (in 6 weeks) May resume sexual activity in: 6-8 weeks and - (Nothing in your vagina for 6 weeks. No vaginal or anal intercourse for 6-8 weeks) Lifting Restrictions: 15 lbs Dressing / Incision Call your doctor if your incision/area has: Continuous Slow Oozing, Sudden Increased Bleeding and Foul Smelling Discharge Call your doctor if you observe: Fever of 101 or Higher and Using more than 1 pad per hour Cleanse incision/area with: Soap & Water and - (Your incisions have skin glue, it can get wet, leave the glue on until it falls off. ) Follow Up Care Please Follow Up With: Rosita Jamison MD When: With my office in 1-2 and 6 weeks or as needed. [phone] or send a [employer] message with non urgent issues Test Results: Test results from this visit will be discussed in further detail at your follow-up appointment, if applicable. Discharge Plan Admission Primary Reason for Your Visit: Hysterectomy Attending Provider: Rosita Jamison Primary Care Provider: Tracy Mendez Discharge Orders/Prescriptions Prescriptions: New ibuprofen [ibuprofen] 600 MG tablet 600 mg PO Q6H PRN (Reason: Pain) Qty: 60 1RF oxycodone 5 MG tablet 5 mg PO Q8H PRN (Reason: severe pain) 7 Days Qty: 10 0RF Continued omeprazole 20 mg capsule,delayed release(DR/EC) 20 mg PO DAILY Patient Comments: TAKE 1 CAPSULE BY MOUTH EVERY MORNING (15 MINUTES BEFORE eating). rosuvastatin 5 mg tablet 5 mg PO DAILY Patient Comments: 1 (one) Tablet qd Referrals / Follow Up: Tracy Mendez DO [Primary Care Provider] - Disposition Disposition (needs filled in before D/C Order can be placed): Home, Self Care
--- NOTE | 2023-01-03 07:53 | PCM.OPRPT ---
Problems Associated Problem List Diagnoses (1) NY II (cervical intraepithelial neoplasia II): Report of Operation Date of Procedure: 01/03/23 Pre-Operative Diagnosis: High grade cervical dysplasia, uterine fibroid Post-Operative Diagnosis: same Surgery/Procedure Performed:: Laparoscopic assisted vaginal hysterectomy with bilateral salpingectomy Description of Surgical Findings:: short flush, stenotic cervix, large fundal uterine fibroid, normal vagina and urethra, normal small ovaries, normal bladder, otherwise unremarkable peritoneal cavity Surgeon: Rosita Jamison safety deposit supervisor: Jennifer Marcos Type of Anesthesia: General Anesthesiologist: Saba Pierson Special Medications: none Specimen's removed: uterus, cervix, bilateral fallopian tubes Drains: liu Estimated Blood Loss (mL): 50 Fluids Replaced: 1300 Description of Procedure: The patient was taken to the operating room where she was prepped and draped in the dorsal lithotomy position. Her arms were tucked to the side and padded and her legs were placed in the yellowfin stirrups. Care was taken to ensure that she was placed in a neurologically safe and neutral position. A weighted speculum was placed in the vagina and the anterior lip of the cervix was grasped with a single-tooth tenaculum. I was unable to penetrate the cervical os easily because of the stenosis. I attempted to dilate the cervix. I then perforated the uterus. I tried to place a Conn cannula for uterine manipulation but it would not stay. Therefore a tenaculum was just left on the cervix and no uterine manipulator was placed. The uterine perforation was incidental case. The Liu catheter was placed to straight drain. Attention was turned to the abdominal portion of the case. Before skin incisions were made they were infiltrated with 0.5% Marcaine solution for local anesthetic. A 5 mm intraumbilical incision was made and while tenting the anterior abdominal wall up with towel clamps a 5 mm blade less trocar and sleeve were advanced directly into the peritoneal cavity. Peritoneal placement was confirmed with the laparoscope the pneumoperitoneum was created, and the underlying abdominal contents were intact. The patient was placed in Trendelenburg and the above findings were noted. Right and left lateral 5 mm trochars were placed under direct visualization without difficulty. Because of the large size of the fibroid pushing the fundus down and the lack of the uterine manipulator, I had to place a fourth 4 in the left upper quadrant under direct visualization and a single-tooth tenaculum was used laparoscopically to manipulate the uterus to help with visualization The antimesenteric portion of the tube was clamped sealed and transected serially on both sides with the LigaSure device. The round ligaments were clamped sealed and transected and a window was made in the peritoneum. The utero-ovarian ligaments were then clamped, sealed and transected with the LigaSure device and the pedicles were hemostatic The bladder flap was dissected down with the LigaSure device and blunt dissection and the uterine arteries were then skeletonized. The uterine arteries were clamped, sealed and transected on both sides with the LigaSure device. At this point the pedicles were all examined and found to be hemostatic. Attention was turned to the vaginal portion of the case. 1% lidocaine with dilute epinephrine solution was used to infiltrate the anterior vaginal epithelium over the cervix. An incision of vaginal epithelium was made around the entire cervix. The anterior tissue was dissected back with blunt and sharp dissection and the anterior colpotomy was made. Intraperitoneal entry was confirmed. Same procedure was performed posteriorly and posterior colpotomy was made without difficulty. The uterosacral ligaments were clamped on both sides, transected and suture-ligated. The lower portion of the cardinal ligament was clamped, transected and suture-ligated. There is a small piece of peritoneum on both sides which was then clamped, transected and suture-ligated. Care was taken to attach the posterior peritoneum to the vaginal cuff with an 0-0 Vicryl suture. A modified De Leon suture was done with a 2-0 PDS suture. This was placed in the posterior cul-de-sac reefed across the posterior peritoneum to both uterosacral ligaments brought back out through the posterior vaginal cuff. The vaginal cuff was then closed in a horizontal fashion with interrupted 0 Vicryl [id number] sutures. Care was taken to secure the vagina to the uterosacral ligaments. The modified De Leon's PDS suture was cinched down and tied. The Liu catheter was removed and a cystoscopy was performed. The bladder appeared normal and was intact. Both ureteral orifices were noted and both ureteral jets were seen. The cystoscope was removed and the Liu catheter was placed back to straight drain. A sponge stick was placed in the vagina to help place traction against the vaginal cuff. The laparoscope was reinserted into the abdomen and the pneumoperitoneum was re-created. The pedicles were reexamined and found to be hemostatic. The vaginal cuff was hemostatic. The right and left lateral ports were taken out and the sites were hemostatic. The pneumoperitoneum was released and even under low pressure there was no bleeding of any of the pedicles are vaginal cuff. The umbilical port was removed. The umbilical skin incisions were closed with Monocryl suture and skin glue by Dr. Mccoy. The vaginal instruments were removed by me and a vaginal sweep was completed by me. Dr. Mccoy provided camera guidance, tissue manipulation and assistance with visualization and retraction during the procedure. No qualified residents were available for the procedure. The surgery was performed by me with assistance other than the portions dictated as above. There were no qualified residents available for this procedure. All sponge lap and needle counts were correct and the patient was transferred to the recovery room in stable condition. Grafts/Implants Used: none Procedure Start Time: 08:00 Procedure Stop Time: 09:32 Complications none Admit VTE Documentation VTE Present on Admission: No VTE Mechan Device Prophylaxis: SCD's VTE Pharm Prophylaxis ordered?: No Reason prophylaxis not ordered:: Procedure Not Indicated
[2023-01-03] MEDS: Bupivacaine Mpf 0.5% 30 ML VIAL (08:00)
[2023-01-03] MEDS: Lidocaine 1%/Epi 1:200 (30ml) 30 ML AMPUL ×2 (08:47→09:27)
[2023-01-03] MEDS: Ondansetron 4 MG/2 ML Vial IV (09:29)
== END 2023-01-03 12:37 | disposition home or self-care (01) ==
LOC: SDC 05:26 → AC 05:26
PROVIDERS: PCP Internal Medicine; Referring Provider Obstetrics & Gynecology; Visit Provider Obstetrics & Gynecology
PROC: 0UT9FZZ Resection of Uterus, Via Natural or Artificial Opening With Percutaneous Endoscopic Assistance (ICD-10-PCS; CPT 58552; principal; 2023-01-03 07:05)
DX: D25.1 Intramural leiomyoma of uterus (principal); N85.01 Benign endometrial hyperplasia; Z80.3 Family history of malignant neoplasm of breast; E78.00 Pure hypercholesterolemia, unspecified; K21.9 Gastro-esophageal reflux disease without esophagitis; R93.89 Abnormal findings on diagnostic imaging of other specified body structures; D25.2 Subserosal leiomyoma of uterus
CPT/HCPCS: 58552; 00944; 36415; 82962; 83735; 85027; 86850; 86900; 86901; 88307; 93005; J7120; J2405; J3475

== ENCOUNTER → 2025-01-08 | Outpatient (CLI) | payer OTHER, SELFPAY ==
[2025-01-08 13:15] LABS: AST(SGOT) 30 U/L (<=31); Alanine Aminotransfer ALT/SGPT 31 U/L (<=34); Albumin, Serum 4.5 g/dL (3.5-5.0); Alkaline Phosphatase 59 U/L (35-104); Anion Gap 10 (5-15); BUN 17 mg/dL (4-19); BUN/Creat Ratio 27.0 RATIO (10-20); Calcium,Total 9.4 mg/dL (7.6-11.0); Carbon Dioxide 26.9 mmol/L (21.0-32.0); Chloride 104 mmol/L (98-108); Cholesterol 164 mg/dL (<=200); Globulin 3.2 g/dL (2.2-4.2); Glucose 95 mg/dL (70-99); Low Density Lipoprotein Calc. 100 mg/dL; Potassium 4.8 mmol/L (3.3-5.1); Triglycerides 71 mg/dL; Very Low Density Lipoprotein 14 mg/dL (5-40); cholesterol:hdl ratio screen 3.27
== END | disposition home or self-care (01) ==
LOC: LABSPEC 12:07
PROVIDERS: PCP Internal Medicine; Referring Provider Internal Medicine; Visit Provider Internal Medicine
DX: R73.09 Other abnormal glucose (principal); E78.5 Hyperlipidemia, unspecified
CPT/HCPCS: 80053; 80061; 83036